=== PATIENT | male | born 1980 | race Two or more races ===

== ENCOUNTER 2022-03-03 11:25 | Emergency (ER) | payer OTHER ==
[2022-03-03] MEDS ORDERED: Lidocaine 1% 5 ML VIAL INJECT ONE (11:30)
[2022-03-03] MEDS ORDERED: cefTRIAXone 1 GM Vial IM ONE (12:33)
[2022-03-03] MEDS ORDERED: Lidocaine 1% 5 ML VIAL ONE (12:38)
== END 2022-03-03 15:01 | disposition home or self-care (01) ==
LOC: JP.ED 11:25
DX: S62.501B Fracture of unspecified phalanx of right thumb, initial encounter for open fracture (principal); S67.01XA Crushing injury of right thumb, initial encounter; W23.1XXA Caught, crushed, jammed, or pinched between stationary objects, initial encounter
CPT/HCPCS: 73140; 96372; 99282; 99283; J0696

== ENCOUNTER 2022-03-31 15:12 | Emergency (ER) | payer SELFPAY | END 2022-03-31 16:07 | disposition home or self-care (01) | LOC: JP.ED 15:12 | DX: S68.521D Partial traumatic transphalangeal amputation of right thumb, subsequent encounter (principal); F17.210 Nicotine dependence, cigarettes, uncomplicated; Z48.00 Encounter for change or removal of nonsurgical wound dressing; Z79.899 Other long term (current) drug therapy | CPT/HCPCS: 99282; 99283 ==